=== PATIENT | male | born 1935 | race Caucasian/White ===

== ENCOUNTER → 2017-05-22 | Outpatient (CLI) | payer MEDICARE ==
--- NOTE | 2017-05-22 14:26 | RADIOLOGY REPORT (SQ) ---
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 TECHNIQUE: Multiplanar multisequence imaging performed without and with contrast including sagittal, axial and coronal T2, axial T1, axial gradient fat sat T1, axial, sagittal and coronal fat sat T1 po st contrast. CONTRAST TYPE AND DOSE: 20 mL IV ProHance gadolinium RENAL FUNCTION: Estimated GFR 51 LIMITATIONS: None. FINDINGS: LIVER: Normal size. No masses. Multiple benign-appearing hepatic cysts, the largest is 3. 3 cm in size in the posterior right lobe liver. No dilated ducts. CBD normal. SPLEEN: Normal size. No focal lesions. PANCREAS: A 5.6 cm craniocaudad by 3.7 cm transverse by 4.5 cm in AP solid enhancing mass is present in the pancreatic head, best shown on coronal image 7 and axial image 14. This mass causes pancreati c ductal obstruction, the duct in the pancreatic tail and body is dilated, with pancreatic parenchyma l atrophy. No surrounding retroperitoneal fluid or inflammatory change. Mass abuts the right lateral aspect of the superior mesenteric artery and vein. 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 Just ventral to the pancreatic head mass, a 2.2 x 1.5 cm nodule is present likely a satellite lesion or adjacent enlarged lymph node. This is also shown on coronal image 16. GALLBLADDER: No masses. No stones. No gallbladder wall thickening or pericholecystic fluid. ADRENAL GLANDS: No significant masses or asymmetry. RIGHT KIDNEY AND URETER: No masses. Less than 1 cm right upper and lower pole cortical cysts. No hy dronephrosis. LEFT KIDNEY AND URETER: No masses. Less than 1 cm left upper pole cortical cyst. No hydronephrosis. AORTA AND VESSELS: No aneurysm. No dissection. Renal arteries, SMA, celiac without stenosis. RETROPERITONEUM: No retroperitoneal adenopathy, hemorrhage or masses. BOWEL: No gross obstruction ABDOMINAL WALL AND PERITONEUM: No hernias. No free fluid. BONES: No acute or significant findings. OTHER: No other significant finding. IMPRESSION: 5.6 x 3.7 x 4.5 cm mass in the head of the pancreas with atrophy of the remainder the pa ncreas. Findings are worrisome for primary neoplasm. TECHNICAL DOCUMENTATION: JOB ID: [id number] [employer]- All Rights Reserved
== END ==
LOC: RAD 12:00
PROVIDERS: ATTEND Internal Medicine Medical Oncology
DX: K86.9 Disease of pancreas, unspecified (principal)
CPT/HCPCS: 82565; 74183; A9576

== ENCOUNTER → 2017-05-26 | Outpatient (CLI) | payer MEDICARE ==
--- NOTE | 2017-05-27 09:32 | RADIOLOGY REPORT (SQ) ---
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 RADIONUCLIDE AND DOSE: 11.2 mCi F18 FDG The route of agent administration: Intravenous FASTING BLOOD SUGAR: 92 mg/dl CONTRAST TYPE AND DOSE: No CT contrast given. TECHNIQUE: Blood glucose level was verified. Above dose of FDG was injected intravenously. 2-D seg mented attenuation correction images were obtained from the base of the skull to the midthighs. Nonc ontrast CT images were obtained for attenuation correction and fusion with emission images. CT image s were performed without oral or intravenous contrast and are not sensitive for parenchymal lesions. A series of overlapping emission PET images were obtained. [facility] by the radiologist. Images stored on PACS. LIMITATIONS: None. FINDINGS: HEAD AND NECK: No areas of abnormal metabolic activity in the soft tissues of the head and neck. CHEST: No areas of abnormal metabolic activity in the chest. ABDOMEN AND PELVIS: Pancreatic head mass 6.8 x 6.4 cm measuring 10.0 mean SUV. PROXIMAL LOWER EXTREMITIES: No areas of abnormal metabolic activity in the soft tissues of the lower extremities. BONES: No abnormal metabolic activity in the visualized skeleton. ADDITIONAL CT FINDINGS: Subcentimeter SMA axis non hypermetabolic lymph nodes. Cardiomegaly. 3 cm liver cyst right lobe. Old granulomatous disease in the liver. OTHER: No other significant findings. IMPRESSION: Hypermetabolic pancreatic head mass. No evidence of metastatic disease. TECHNICAL DOCUMENTATION: JOB ID: [id number]- All Rights Reserved
== END ==
LOC: RAD 15:21
PROVIDERS: ATTEND Internal Medicine Medical Oncology
DX: D49.0 Neoplasm of unspecified behavior of digestive system (principal); K86.9 Disease of pancreas, unspecified
CPT/HCPCS: 78815; A9552

== ENCOUNTER → 2017-09-02 | Outpatient (CLI) | payer MEDICARE ==
--- NOTE | 2017-09-04 10:30 | RADIOLOGY REPORT (SQ) ---
EXAM DESCRIPTION: MRI ABDOMEN COMBO COMPLETED DATE/TIME: 09/02/2017 10:25 am REASON FOR STUDY: OTHER MALIGNANT NEUROENDOCRINE TUMORS (C7A.8) C7A.8 OTHER MALIGNANT NEUROENDOCRIN E TUMORS COMPARISON: 05/22/2017 TECHNIQUE: Multiplanar multisequence imaging performed without and with contrast including sagittal, axial and coronal T2, axial T1, axial gradient fat sat T1, axial, sagittal and coronal fat sat T1 po st contrast. CONTRAST TYPE AND DOSE: 20 mL Prohance. RENAL FUNCTION: GFR 51 LIMITATIONS: None. FINDINGS: LIVER: Benign cysts and subcentimeter probable hemangiomas. SPLEEN: Normal size. No focal lesions. PANCREAS: Pancreatic head mass 5.5 x 4.7 by 6.0 cm AP by transverse by craniocaudal diameter, not sig nificantly changed by my measurements. Approximately 2 cm satellite nodule just inferior and anterio r is unchanged. GALLBLADDER: No masses. No stones. No gallbladder wall thickening or pericholecystic fluid. ADRENAL GLANDS: No significant masses or asymmetry. RIGHT KIDNEY AND URETER: No masses. No hydronephrosis. LEFT KIDNEY AND URETER: No masses. No hydronephrosis. AORTA AND VESSELS: No aneurysm. RETROPERITONEUM: No retroperitoneal adenopathy, hemorrhage or masses. BOWEL: No visualized masses. No inflammation. No significant dilatation. ABDOMINAL WALL AND PERITONEUM: See above. No ascites. BONES: No acute findings. OTHER: No other significant finding. IMPRESSION: Stable pancreatic head mass. TECHNICAL DOCUMENTATION: JOB ID: [id number] [employer]- All Rights Reserved Reading location - IP/workstation name: [email or web address]
== END ==
LOC: RAD 09:24
PROVIDERS: ATTEND Internal Medicine Medical Oncology
DX: C7A.8 Other malignant neuroendocrine tumors (principal)
CPT/HCPCS: 74183; 82565

== ENCOUNTER → 2018-02-24 | Outpatient (CLI) | payer MEDICARE ==
--- NOTE | 2018-02-24 15:07 | RADIOLOGY REPORT (SQ) ---
EXAM DESCRIPTION: CT ABDOMEN IV CONTRAST ONLY COMPLETED DATE/TIME: 02/24/2018 10:52 am REASON FOR STUDY: OTHER MALIGNANT NEUROENDOCRINE TUMORS C7A.8 OTHER MALIGNANT NEUROENDOCRINE TUMORS COMPARISON: MRI abdomen dated 09/02/2017 PET-CT dated 05/26/2017 TECHNIQUE: CT scan of the abdomen performed with intravenous and without oral contrast using helical scanning technique with dynamic intravenous contrast injection. Images reviewed with lung, soft tiss ue, and bone windows. Reconstructed coronal and sagittal MPR images reviewed. Delayed images for eval uation of the urinary system also acquired and evaluated. All images stored on PACS. All CT scanners at this facility use dose modulation, iterative reconstruc tion, and/or weight based dosing when appropriate to reduce radiation dose to as low as reasonably ac hievable (ALARA). [facility]: Dose Right [facility]: CareDose [facility]: Dose Right [facility]: Teradose 4D [facility]: [employer] CONTRAST TYPE AND DOSE: contrast/concentration: Isovue 350.00 mg/ml; Total Contrast Delivered: 95.0 ml; Total Saline Delivered: 71.0 ml RENAL FUNCTION: BUN 18, creatinine 1.3 RADIATION DOSE: CT Rad equipment meets quality standard of care and radiation dose reduction technIntrakr ues were employed. CTDIvol: 11.7 - 15.2 mGy. DLP: 1434 mGy-cm. . LIMITATIONS: None. FINDINGS: LOWER CHEST: There are small right lower lobe pulmonary nodules. Please refer to the CT o f the chest for further discussion. LIVER: Hepatic calcifications and cysts are stable in appearance. SPLEEN: Normal size. No focal lesions. PANCREAS: Calcified pancreatic head mass is again noted. This measures 5.4 x 4.6 cm in size. This i s smaller when compared to prior PET-CT. It is grossly stable from recent MRI. GALLBLADDER: No identified stones by CT criteria. No inflammatory changes to suggest cholecystitis. ADRENAL GLANDS: No significant masses or asymmetry. RIGHT KIDNEY AND URETER: No solid masses. No significant calcifications. No hydronephrosis or hyd roureter. LEFT KIDNEY AND URETER: No solid masses. No significant calcifications. No hydronephrosis or hydr oureter. AORTA AND VESSELS: No aneurysm. No dissection. Renal arteries, SMA, celiac without stenosis. RETROPERITONEUM: No retroperitoneal adenopathy, hemorrhage or masses. BOWEL AND PERITONEAL CAVITY: No masses or inflammatory changes. No free fluid or peritoneal masses. APPENDIX: Normal in appearance. ABDOMINAL WALL: No masses. No hernias. BONES: No significant or acute findings. OTHER: No other significant finding. IMPRESSION: Stable pancreatic head lesion. Overall size is 5.4 x 4.6 cm. Calcified lesions in the liver along with hypoattenuating lesions are stable in appearance. TECHNICAL DOCUMENTATION: JOB ID: [id number] Quality ID # [id number]: Final reports with documentation of one or more dose reduction techniques (e.g., Au tomated exposure control, adjustment of the mA and/or kV according to patient size, use of iterative reconstruction technique) 2010 [employer]- All Rights Reserved Reading location - IP/workstation name: [email or web address]
--- NOTE | 2018-02-24 15:13 | RADIOLOGY REPORT (SQ) ---
EXAM DESCRIPTION: CT CHEST WITH COMPLETED DATE/TIME: 02/24/2018 10:52 am REASON FOR STUDY: OTHER MALIGNANT NEUROENDOCRINE TUMORS C7A.8 OTHER MALIGNANT NEUROENDOCRINE TUMORS COMPARISON: PET-CT dated 05/26/2017 TECHNIQUE: CT scan of the chest performed using helical scanning technique with dynamic intravenous contrast injection. Images reviewed with lung, soft tissue and bone windows. Reconstructed coronal and sagittal MPR and MIP images reviewed. All images stored on PACS. All CT scanners at this facility use dose modulation, iterative reconstruction, and/or weight based d osing when appropriate to reduce radiation dose to as low as reasonably achievable (ALARA). [facility]: Dose Right [facility]: CareDose [facility]: Dose Right [facility]: Teradose 4D [facility]: XMS [employer] CONTRAST TYPE AND DOSE: 71 mL Isovue 370- low osmolar. RENAL FUNCTION: BUN 18, creatinine 1.3 RADIATION DOSE: . LIMITATIONS: None. FINDINGS: LUNGS AND PLEURA: There are at least 3 small right lower lobe pulmonary nodules. The larg est measures 5.4 mm in diameter these appear new from prior PET-CT. There is a 7 mm nodule in the an terior aspect of the left lower lobe. There is a smaller ground-glass opacity along the major fissur e measured 8.5 mm. These changes are nonspecific but again appear new and will need follow up. No c onsolidation or effusions. HILAR AND MEDIASTINAL STRUCTURES: No identified masses or abnormal nodes. HEART AND VASCULAR STRUCTURES: No aneurysm or dissection. No central pulmonary emboli. No pericardi al effusion. HARDWARE: None in the chest. UPPER ABDOMEN: Pancreatic mass is again noted. THYROID AND OTHER SOFT TISSUES: No masses. No adenopathy. BONES: No significant finding. OTHER: No other significant finding. IMPRESSION: Small bilateral pulmonary nodules. These are nonspecific but appear new from May 18. Metastatic disease cannot be excluded. The largest nodule on the right measures 5.4 mm. On the left the largest nodule measures 8.5 mm. TECHNICAL DOCUMENTATION: JOB ID: [id number] Quality ID # 436: Final reports with documentation of one or more dose reduction techniques (e.g., Au tomated exposure control, adjustment of the mA and/or kV according to patient size, use of iterative reconstruction technique) 2010 [employer]- All Rights Reserved Reading location - IP/workstation name: [email or web address]
== END ==
LOC: RAD 10:15
PROVIDERS: ATTEND Internal Medicine Medical Oncology
DX: C7A.8 Other malignant neuroendocrine tumors (principal); R91.8 Other nonspecific abnormal finding of lung field
CPT/HCPCS: 71260; 74160

== ENCOUNTER → 2018-06-08 | Outpatient (CLI) | payer MEDICARE ==
--- NOTE | 2018-06-09 09:46 | RADIOLOGY REPORT (SQ) ---
EXAM DESCRIPTION: PET CT SKULL/THIGH COMPLETED DATE/TIME: 06/08/2018 9:05 pm REASON FOR STUDY: PANCREAS CANCER C7A.8 OTHER MALIGNANT NEUROENDOCRINE TUMORS COMPARISON: 05/26/2017 RADIONUCLIDE AND DOSE: 11.2 mCi F18 FDG The route of agent administration: Intravenous FASTING BLOOD SUGAR: 75 mg/dl CONTRAST TYPE AND DOSE: No CT contrast given. TECHNIQUE: Blood glucose level was verified. Above dose of FDG was injected intravenously. 2-D seg mented attenuation correction images were obtained from the base of the skull to the midthighs. Nonc ontrast CT images were obtained for attenuation correction and fusion with emission images. CT image s were performed without oral or intravenous contrast and are not sensitive for parenchymal lesions. A series of overlapping emission PET images were obtained. Images reviewed and manipulated [facility] by the radiologist. Images stored on PACS. LIMITATIONS: Motion. FINDINGS: HEAD AND NECK: No areas of abnormal metabolic activity in the soft tissues of the head and neck. CHEST: No areas of abnormal metabolic activity in the chest. ABDOMEN AND PELVIS: Pancreatic head mass measures 5.2 x 5.8 cm and 3.8 SUV, previously 6.8 x 6.4 cm a nd 10.0 SUV. Increased uptake 3.4 SUV within subcutaneous nodule left buttock measuring 1.2 x 2.4 cm. Unlikely cl inically significant, probably due to previous injection. PROXIMAL LOWER EXTREMITIES: No areas of abnormal metabolic activity in the soft tissues of the lower extremities. BONES: No abnormal metabolic activity in the visualized skeleton. ADDITIONAL CT FINDINGS: Left inguinal hernia containing nondilated bowel. OTHER: Background liver 2.3 SUV. Blood pool 1.9 SUV. IMPRESSION: Decrease in size of pancreatic head mass with decreased metabolic activity compared to p rior. TECHNICAL DOCUMENTATION: JOB ID: [id number] [employer]- All Rights Reserved Reading location - IP/workstation name: [email or web address]
== END ==
LOC: RAD 16:00
PROVIDERS: ATTEND Internal Medicine Medical Oncology
DX: C7A.8 Other malignant neuroendocrine tumors (principal)
CPT/HCPCS: 78815; A9552

== ENCOUNTER 2018-08-21 15:20 | Emergency (ER) | payer MEDICARE ==
--- NOTE | 2018-08-21 16:08 | RADIOLOGY REPORT (SQ) ---
EXAM DESCRIPTION: CT HEAD WITHOUT COMPLETED DATE/TIME: 08/21/2018 3:59 pm REASON FOR STUDY: fall COMPARISON: None. TECHNIQUE: Axial images acquired through the brain without intravenous contrast. Images reviewed wi th bone, brain and subdural windows. Additional sagittal and coronal reconstructions were generated. Images stored on PACS. All CT scanners at this facility use dose modulation, iterative reconstruction, and/or weight based d osing when appropriate to reduce radiation dose to as low as reasonably achievable (ALARA). [facility]: Dose Right [facility]: CareDose [facility]: Dose Right [facility]: Teradose 4D [facility]: [employer] RADIATION DOSE: CT Rad equipment meets quality standard of care and radiation dose reduction techniq ues were employed. CTDIvol: 53.2 mGy. DLP: 1017 mGy-cm. mGy. LIMITATIONS: None. FINDINGS: VENTRICLES: Normal size and contour. CEREBRUM: No masses. No hemorrhage. No midline shift. No evidence for acute infarction. Normal gra y/white matter differentiation. No areas of low density in the white matter. CEREBELLUM: No masses. No hemorrhage. No alteration of density. No evidence for acute infarction. EXTRAAXIAL SPACES: No fluid collections. No masses. ORBITS AND GLOBE: No intra- or extraconal masses. Normal contour of globe without masses. CALVARIUM: No fracture. PARANASAL SINUSES: No fluid or mucosal thickening. SOFT TISSUES: No mass or hematoma. OTHER: No other significant finding. IMPRESSION: NORMAL BRAIN CT WITHOUT CONTRAST. EVIDENCE OF ACUTE STROKE: NO. COMMENT: Quality ID # 436: Final reports with documentation of one or more dose reduction techniques (e.g., Automated exposure control, adjustment of the mA and/or kV according to patient size, use of iterative reconstruction technique) TECHNICAL DOCUMENTATION: JOB ID: [id number] [employer]- All Rights Reserved Reading location - IP/workstation name: [email or web address]
--- NOTE | 2018-08-21 16:10 | RADIOLOGY REPORT (SQ) ---
EXAM DESCRIPTION: CT CERVICAL SPINE WITHOUT COMPLETED DATE/TIME: 08/21/2018 3:59 pm REASON FOR STUDY: Fall COMPARISON: None. TECHNIQUE: Axial images acquired through the cervical spine without intravenous contrast. Images re viewed with lung, soft tissue and bone windows. Reconstructed coronal and sagittal MPR images review ed. Images stored on PACS. All CT scanners at this facility use dose modulation, iterative reconstruction, and/or weight based d osing when appropriate to reduce radiation dose to as low as reasonably achievable (ALARA). [facility]: Dose Right [facility]: CareDose [facility]: Dose Right [facility]: Teradose 4D [facility]: [employer] RADIATION DOSE: CT Rad equipment meets quality standard of care and radiation dose reduction techniq ues were employed. CTDIvol: 23.0 mGy. DLP: 582 mGy-cm. mGy. LIMITATIONS: None. FINDINGS: ALIGNMENT: Anatomic. MINERALIZATION: Normal. VERTEBRAL BODIES: No fractures or dislocation. DISCS: Disc spaces are narrowed at C3-4 and from C5-C7. Marginal osteophytes are present. FACETS, LATERAL MASSES, POSTERIOR ELEMENTS: No fractures. No dislocation. No acute findings. HARDWARE: None in the spine. VISUALIZED RIBS: No fractures. LUNG APICES AND SOFT TISSUES: No significant or acute findings. OTHER: No other significant finding. IMPRESSION: Degenerative disc disease and spondylosis. No acute finding. TECHNICAL DOCUMENTATION: JOB ID: [id number] Quality ID # [id number]: Final reports with documentation of one or more dose reduction techniques (e.g., Au tomated exposure control, adjustment of the mA and/or kV according to patient size, use of iterative reconstruction technique) 2010 [employer]- All Rights Reserved Reading location - IP/workstation name: [email or web address]
--- NOTE | 2018-08-21 16:12 | RADIOLOGY REPORT (SQ) ---
EXAM DESCRIPTION: CT FACIAL AREA WITHOUT COMPLETED DATE/TIME: 08/21/2018 3:59 pm REASON FOR STUDY: Fall COMPARISON: None. TECHNIQUE: Noncontrasted images through the facial bones and orbits windowed for bone and soft tissu e. Additional coronal and sagittal reconstructed images reviewed. All images stored on PACS. All CT scanners at this facility use dose modulation, iterative reconstruction, and/or weight based d osing when appropriate to reduce radiation dose to as low as reasonably achievable (ALARA). [facility]: Dose Right [facility]: CareDose [facility]: Dose Right [facility]: Teradose 4D [facility]: [employer] RADIATION DOSE: CT Rad equipment meets quality standard of care and radiation dose reduction techniq ues were employed. CTDIvol: 30.4 mGy. DLP: 661 mGy-cm. mGy. LIMITATIONS: None. FINDINGS: FACIAL BONES: No fracture or bone lesion. ORBITS: Intact. No fracture. Symmetric intact globes and retroorbital soft tissues. PARANASAL SINUSES: Clear. No significant mucosal thickening, mass or fluid. No nasal polyps. Maxill emelyn sinus outlets are patent. SOFT TISSUES: No mass or edema. INFERIOR BRAIN: Limited view. No acute findings. OTHER: No other significant finding. IMPRESSION: NO ACUTE FINDINGS. TECHNICAL DOCUMENTATION: JOB ID: [id number] Quality ID # [id number]: Final reports with documentation of one or more dose reduction techniques (e.g., Au tomated exposure control, adjustment of the mA and/or kV according to patient size, use of iterative reconstruction technique) 2010 [employer]- All Rights Reserved Reading location - IP/workstation name: [email or web address]
--- NOTE | 2018-08-21 16:13 | RADIOLOGY REPORT (SQ) ---
EXAM DESCRIPTION: SHOULDER LEFT 2 OR MORE VIEWS COMPLETED DATE/TIME: 08/21/2018 4:04 pm REASON FOR STUDY: pain and inability to move COMPARISON: None. NUMBER OF VIEWS: Two views TECHNIQUE: Frontal and lateral images acquired of the left shoulder. LIMITATIONS: None. FINDINGS: MINERALIZATION: Normal. BONES: There is an impacted fracture of the humeral head/ neck. JOINTS: No dislocation. VISUALIZED LUNGS AND RIBS: No pneumothorax. No rib fracture. SOFT TISSUES: No radiopaque foreign body. OTHER: No other significant finding. IMPRESSION: Humeral head/ neck fracture. TECHNICAL DOCUMENTATION: JOB ID: [id number] [employer]- All Rights Reserved Reading location - IP/workstation name: [email or web address]
[2018-08-21 19:11] VITALS: BP 163/95
--- NOTE | 2018-08-21 23:42 | ER Document Report ---
Entered by DIANA SUTTON SCRIBE 08/21/18 [id number] Acting as scribe for:MAYDA RATLIFF DO ED General - General Chief Complaint: Fall Stated Complaint: SHOULDER INJURY Time Seen by Provider: 08/21/18 17:55 Primary Care Provider: ISRRAEL SCOTT FNP [Primary Care Provider] - Follow up as needed NELLY ARMENDARIZ MD [ACTIVE STAFF] - Follow up in 3-5 days Mode of Arrival: Ambulatory Information source: Patient Notes: Patient is an 83 year old male presenting to the emergency department complaining of left shoulder pain secondary a mechanical trip and fall just prior to arrival. Patient states he tripped over his feet and landed on an ottoman hitting his nose and left shoulder. Patient denies any head trauma, being on blood thinner or any focal symptoms. TRAVEL OUTSIDE OF THE [place] IN LAST 30 DAYS: No - Related Data Allergies/Adverse Reactions: No Known Allergies Allergy (Verified 08/21/18 15:29) Past Medical History - General Information source: Patient - Social History Smoking Status: Never Smoker Cigarette use (# per day): No Chew tobacco use (# tins/day): No Smoking Education Provided: No Frequency of alcohol use: Occasional Drug Abuse: None Family History: Reviewed & Not Pertinent - Past Medical History Cardiac Medical History: Reports: Hx Hypercholesterolemia Psychiatric Medical History: Reports: Hx Depression Review of Systems - Review of Systems Constitutional: No symptoms reported EENT: No symptoms reported Cardiovascular: No symptoms reported Respiratory: No symptoms reported Gastrointestinal: No symptoms reported Genitourinary: No symptoms reported Male Genitourinary: No symptoms reported Musculoskeletal: See HPI Skin: No symptoms reported Hematologic/Lymphatic: No symptoms reported Neurological/Psychological: No symptoms reported -: Yes All other systems reviewed and negative Physical Exam - Vital signs Vitals: Temp Pulse Resp BP Pulse Ox 97.4 F 73 16 156/77 H 96 08/21/18 15:26 08/21/18 15:26 08/21/18 15:26 08/21/18 15:26 08/21/18 15:26 - Notes Notes: GENERAL: Alert, interacts well. No acute distress. HEAD: Normocephalic. Superficial abrasion to the bridge of nose, underneath glasses, no gapping laceration, no active bleeding. EYES: Pupils equal, round, and reactive to light. Extraocular movements intact. ENT: Oral mucosa moist, tongue midline, no signs of trauma to the tongue. Nares patent, no nasal septal hematoma, TM's intacts. NECK: Full range of motion. Supple. Trachea midline. LUNGS: Clear to auscultation bilaterally, no wheezes, rales, or rhonchi. No respiratory distress. HEART: Regular rate and rhythm. No murmurs, gallops, or rubs. ABDOMEN: Soft, non-tender. Non-distended. Bowel sounds present in all 4 quadrants. No guarding, rigidity, or rebound. EXTREMITIES: Moves all 4 extremities spontaneously. Tender to palpation to the left proximal humerus. 2+ pitting edema to the RLE, to the level of the calf, patient states this is chronic. Sensations intact of the LUE. Normal muscle strength to the left hand, good capillary refill. Radial and dorsalis pedis pulses 2/4 bilaterally. No cyanosis. NEUROLOGICAL: Alert and oriented x3. Normal speech. PSYCH: Normal affect, normal mood. SKIN: Warm, dry, normal turgor. No rashes or lesions noted. Course - Re-evaluation Re-evalutation: 08/21/18 18:47 CT scan of the face is negative, CT scan of cervical spine is negative, CT scan of the head is negative, x-ray of the left shoulder shows a left humeral head/neck fracture that is impacted but not dislocated. It is slightly subluxed. Discussed over the phone with Dr. Armendariz who states that it is likely subluxed due to either intracapsular hematoma or some deltoid insufficiency. States this is not immediately surgical, agrees with plan to place patient in shoulder immobilizer and discharged to home. - Vital Signs Vital signs: Temp Pulse Resp BP Pulse Ox 98.0 F 64 16 163/95 H 100 08/21/18 19:10 08/21/18 19:10 08/21/18 19:10 08/21/18 19:10 08/21/18 19:10 Procedures - Immobilization left shoulder Pre-Proc Neuro Vasc Exam: Normal Immobilizer type: Shoulder immobilizer Performed by: PCT Post-Proc Neuro Vasc Exam: Normal, Unchanged from pre-exam Alignment checked and good: Yes Discharge - Discharge Clinical Impression: Abrasion Fracture of humeral head, left, closed Qualifiers: Encounter type: initial encounter Qualified Code(s): S42.292A - Other displaced fracture of upper end of left humerus, initial encounter for closed fracture Fall at home Qualifiers: Encounter type: initial encounter Qualified Code(s): W19.XXXA - Unspecified fall, initial encounter; Y92.009 - Unspecified place in unspecified non- institutional (private) residence as the place of occurrence of the external cause Condition: Stable Disposition: HOME, SELF-CARE Additional Instructions: Fracture Proximal Humerus You have a humeral head fracture. This is the top of your shoulder. You should follow-up with Dr. Armendariz, the orthopedic surgeon, as an outpatient to discuss whether or not you may eventually need or want to surgery. The typical shoulder fracture doesn't need a cast. It's best treated by bi nding the arm down with a special sling. Ice packs are used to reduce pain and swelling. After early healing has occurred, [id number] exercises are prescribed for the shoulder. Complete healing may take three to six weeks, depending on the age of the patient and the severity of the fracture. Call the doctor or return at once if the arm becomes numb, or if pain or swelling become severe. You may take acetaminophen up to 1000 mg every 6 hours as needed for pain. I have also prescribed Seymour. Do not combine this with the acetaminophen as it contains acetaminophen and may cause an overdose. Prescriptions: Hydrocodone/Acetaminophen [Seymour 5-325 mg Tablet] 1 tab PO Q6HP PRN #10 tablet PRN Reason: Referrals: ISRRAEL SCOTT FNP [Primary Care Provider] - Follow up as needed NELLY ARMENDARIZ MD [ACTIVE STAFF] - Follow up in 3-5 days I personally performed the services described in the documentation, reviewed and edited the documentation which was dictated to the scribe in my presence, and it accurately records my words and actions.
== END 2018-08-21 19:13 | disposition home or self-care (01) ==
LOC: ER 15:20
DX: S42.292A Other displaced fracture of upper end of left humerus, initial encounter for closed fracture (principal); S00.31XA Abrasion of nose, initial encounter; W01.190A Fall on same level from slipping, tripping and stumbling with subsequent striking against furniture, initial encounter; Y92.009 Unspecified place in unspecified non-institutional (private) residence as the place of occurrence of the external cause; E78.00 Pure hypercholesterolemia, unspecified
CPT/HCPCS: 70450; 70486; 72125; 99284

== ENCOUNTER 2019-05-19 15:08 | Outpatient (CLI) | payer MEDICARE ==
[~2019-05-19 15:08] MED LIST: [UNRECOGNIZED DRUG - OTHER] IM PRN
[2019-05-19 15:23] VITALS: BP 126/75
== END 2019-05-19 15:42 | disposition home or self-care (01) ==
LOC: II 15:08 → 5TH 15:10 → II 15:42
PROVIDERS: ATTEND Internal Medicine
DX: Z51.11 Encounter for antineoplastic chemotherapy (principal); C7A.8 Other malignant neuroendocrine tumors
CPT/HCPCS: 96372; J2353

== ENCOUNTER → 2019-06-15 | Outpatient (CLI) | payer MEDICARE ==
--- NOTE | 2019-06-15 14:01 | RADIOLOGY REPORT (SQ) ---
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 TECHNIQUE: CT scan of the chest and abdomen performed with intravenous and without oral contrast usi ng helical scanning technique with dynamic intravenous contrast injection. Images reviewed with lung, soft tissue, and bone windows. Reconstructed coronal and sagittal MPR images reviewed. Delayed image s for evaluation of the urinary system also acquired and evaluated. All images stored on PACS. All CT scanners at this facility use dose modulation, iterative reconstruc tion, and/or weight based dosing when appropriate to reduce radiation dose to as low as reasonably ac hievable (ALARA). [facility]: Dose Right [facility]: CareDose [facility]: Dose Right [facility]: Teradose 4D [facility]: Noquo CONTRAST TYPE AND DOSE: Contrast/concentration: Isovue 350.00 mg/ml; Total Contrast Delivered: 100.0 ml; Total Saline Delivered: 72.0 ml RENAL FUNCTION: Creatinine 1.1 milligrams/deciliter. RADIATION DOSE: CT Rad equipment meets quality standard of care and radiation dose reduction techniq ues were employed. CTDIvol: 14.0 - 17.5 mGy. DLP: 1553 mGy-cm. LIMITATIONS: None. FINDINGS: CHEST: The trachea and main bronchi are patent. There is no bronchiectasis or segmental m ucus plugging. There are several stable bilateral solid pulmonary nodules ; these include the 2 separate adjacent no dules in the superior segment of the right lower lobe that measure 4.5 and 3 mm (image 67 of series 6 ), the 4 mm subpleural nodule in the basal segments of the right lower lobe (image 91 of series 6), t he 8 mm nodule along the left interlobar fissure (image 57 of series 6), and the 7 mm nodule in the l ingula (image 80 of series 6). There is no new or enlarging pulmonary nodules. There is no consolidation, pleural effusion or pneumothorax. There are no enlarged mediastinal or hilar lymph nodes. The thoracic esophagus is patulous and there is a small hiatal hernia. 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 The heart is normal in size and there is zyth-vq-wbdobhwo atheros clerotic calcification of the coronary arteries. There is no pericardial effusion. The thoracic aor ta is normal in caliber. There is no thoracic aortic dissection or filling defects within the main, right and left pulmonary arteries. LIVER: The morphology of the liver is non cirrhotic. The macrocalcifications in the right hepatic lo be and the hypodense hepatic lesions that range in size from 7 mm up to 3.1 x 2.4 cm are stable in si ze and number from the 06/08/2018 PET. There is no new or enlarging hepatic mass. SPLEEN: There is a heterogeneous mass that arises from the pancreatic head PANCREAS: The heterogeneous mass with internal calcifications centered in the pancreatic head that me asures up to 6 x 5.1 cm is stable in size from the 02/05/2019 PET; the associated atrophy of the panc reatic parenchyma and dilatation of the pancreatic duct in the region of the pancreatic neck have pro gressed - the pancreatic duct measures up to 15 mm in diameter compared to 13 mm on the 02/24/2018 CT . GALLBLADDER: There is no abnormality of the gallbladder that is apparent on CT. The intra and extrah epatic bile ducts are normal in caliber. ADRENAL GLANDS: No mass or asymmetry. RIGHT KIDNEY AND URETER: There are several subcentimeter cortical based hypodense lesions that are to o small to characterize. There is no hydronephrosis nephrolithiasis or solid mass. LEFT KIDNEY AND URETER: The cortical defect in the superior pole of the kidney could represent the se quela of prior infection or infarction. There is no solid mass, hydronephrosis or nephrolithiasis. AORTA AND VESSELS: No aneurysm or dissection of the abdominal aorta. RETROPERITONEUM: No retroperitoneal adenopathy, hemorrhage or mass. The splenic and portal veins are patent. BOWEL AND PERITONEAL CAVITY: Heart is normal in size and there is fnzq-fy-pqzdfdxq atherosclerotic c alcification of the coronary artery; there is no pericardial effusion. The thoracic aorta is normal in caliber. There is no thoracic aortic dissection. There are no filling defects within the main, r ight and left pulmonary arteries. ABDOMINAL WALL: No masses or hernias BONES: No acute findings. OTHER: No other finding. IMPRESSION: 1. The heterogeneous mass with internal calcifications centered in the pancreatic head is unchanged in size from the 06/08/2018 PET. The associated atrophy of the pancreatic parenchyma and dilatation of the pancreatic duct in the region of the pancreatic neck have progressed - for referen ce the pancreatic duct measures up to 15 mm in diameter compared to 13 mm on the 02/24/2018 CT. 2. Stable mesenteric adenopathy. 3. Stable hypodense hepatic lesions. 4. Stable pulmonary nodules. TECHNICAL DOCUMENTATION: JOB ID: [id number] Quality ID # [id number]: Final reports with documentation of one or more dose reduction techniques (e.g., Au tomated exposure control, adjustment of the mA and/or kV according to patient size, use of iterative reconstruction technique) 2010 [facility]- All Rights Reserved Reading location - IP/workstation name: [email or web address]
== END ==
LOC: RAD 08:12
PROVIDERS: ATTEND Nurse Practitioner Family
DX: C7A.8 Other malignant neuroendocrine tumors (principal); R59.0 Localized enlarged lymph nodes; R91.8 Other nonspecific abnormal finding of lung field
CPT/HCPCS: 71260; 74160; 82565

== ENCOUNTER 2019-06-16 14:34 | Outpatient (CLI) | payer MEDICARE ==
[2019-06-16 15:00] VITALS: BP 143/88
== END 2019-06-16 14:59 | disposition home or self-care (01) ==
LOC: II 14:34 → 5TH 14:35 → II 14:59
PROVIDERS: ATTEND Internal Medicine
DX: Z51.11 Encounter for antineoplastic chemotherapy (principal); C7A.8 Other malignant neuroendocrine tumors
CPT/HCPCS: 96401; J2353

== ENCOUNTER 2019-07-14 13:53 | Outpatient (CLI) | payer MEDICARE ==
[2019-07-14 14:10] VITALS: BP 142/97
== END 2019-07-14 14:18 | disposition home or self-care (01) ==
LOC: II 13:53 → 5TH 14:03 → II 14:18
PROVIDERS: ATTEND Internal Medicine
DX: C7A.8 Other malignant neuroendocrine tumors (principal)
CPT/HCPCS: 96372; J2353

== ENCOUNTER 2019-07-26 20:49 | Emergency (ER) | payer MEDICARE ==
[2019-07-26] MEDS ORDERED: DEXTROSE 5%-WATER 500 ML with AMIODARONE HCL 900 MG IV PRN ×2 (21:13)
[2019-07-26] MEDS ORDERED: AMIODARONE HCL INJ 150 MG/3 ML VIAL IV ONE (21:48)
--- NOTE | 2019-07-26 22:07 | EKG REPORT ---
SEVERITY:- ABNORMAL ECG - SINUS RHYTHM MULTIPLE ATRIAL PREMATURE COMPLEXES RIGHT BUNDLE BRANCH BLOCK OLD ANTERIOR AND OLD INFERIOR WALL MS : Confirmed by: Ajit Villareal MD 26-Jul-2019 22:06:55
[2019-07-26 22:13] LABS: ABSOLUTE BASOPHILS # (AUTO) 0.1 10^3/uL (0.0-0.2); ABSOLUTE EOSINOPHILS # (AUTO) 0.2 10^3/uL (0.0-0.6); ABSOLUTE LYMPHOCYTES (AUTO) 1.8 10^3/uL (0.5-4.7); ABSOLUTE MONOCYTES (AUTO) 0.5 10^3/uL (0.1-1.4); ABSOLUTE NEUT (AUTO) 6.8 10^3/uL (1.7-8.2); BASOPHILS % (AUTO) 0.8 % (0-2); EOSINOPHILS % (AUTO) 1.8 % (0-6); HEMATOCRIT 40.3 % (37.9-51.0); HEMOGLOBIN 13.9 g/dL (13.5-17.0); LYMPHOCYTES % (AUTO) 19.1 % (13-45); MEAN CORPUSCULAR HEMOGLOBIN 30.9 pg (27.0-33.4); MEAN CORPUSCULAR HGB CONC 34.6 g/dL (32.0-36.0); MEAN CORPUSCULAR VOLUME 89 fl (80-97); MONOCYTES % (AUTO) 5.1 % (3-13); PLATELET COUNT 198 10^3/uL (150-450); RED BLOOD COUNT 4.51 10^6/uL (4.35-5.55); RED CELL DISTRIBUTION WIDTH 13.7 % (11.5-14.0); SEGMENTED NEUTROPHILS % (AUTO) 73.2 % (42-78); TOTAL CELLS COUNTED % (AUTO) 100 %; WHITE BLOOD COUNT 9.2 10^3/uL (4.0-10.5)
[2019-07-26 22:19] LABS: INTERNATIONAL RATION (INR) 1.13; PROTHROMBIN TIME 14.5 SEC (11.4-15.4)
[2019-07-26 22:26] LABS: ALBUMIN 3.4 g/dL (3.5-5.0); ALKALINE PHOSPHATASE 80 U/L (38-126); ANION GAP 8 (5-19); ASPARTATE AMINO TRANSFERASE 24 U/L (17-59); BILIRUBIN,TOTAL 0.5 mg/dL (0.2-1.3); BLOOD UREA NITROGEN 16 mg/dL (7-20); CALCIUM 8.8 mg/dL (8.4-10.2); CARBON DIOXIDE 27 mmol/L (22-30); CHLORIDE 99 mmol/L (98-107); CREATINE KINASE 110 U/L (55-170); GLUCOSE 224 mg/dL (75-110); POTASSIUM 3.4 mmol/L (3.6-5.0); TOTAL PROTEIN 5.8 g/dL (6.3-8.2)
[2019-07-26 22:36] LABS: CREATINE KINASE MB 1.95 ng/mL (<4.55)
[2019-07-26 22:37] LABS: TROPONIN I 0.091 ng/mL
--- NOTE | 2019-07-26 22:46 | ER Document Report ---
Entered by AMOR HERNADEZ SCRIBE 07/26/[id number] Acting as scribe for:MARLEEN CHERRY IV, MD ED Cardiac - General Chief Complaint: Chest Pain Stated Complaint: CHEST PAIN Primary Care Provider: LINDA PORTILLO FNP-C [NO LOCAL MD] - Follow up as needed Mode of Arrival: Medic Information source: Emergency Med Personnel Notes: This 84 year old male patient brought in by EMS presents to the ED today with complaints of chest pain with radiation to his back for over an hour. EMS reports that the family found the patient sitting in his chair, pale, weak, and diaphoretic. Patient had runs of vtach prior to arrival per EMS. They state that the patient has a history of A fib and took Diltiazem x3 hours prior to their arrival. Denies history of UT, stent placement, or pacemaker. EMS reports that they established IV access and started the patient on 150 mg Amiodarone drip over 10 minutes and administered x2 sprays of SL NTG. They also placed the patient on 2L O2 via NC. They report that the patient reported the pain 2/10 and described it as pressure that seemed to resolve with the Amiodarone rather than the NTG. EMS states that the patient reports that the pain is improved with sitting up and that he denies shortness of breath or dyspnea. They deny any drug allergies, but state that the patient can't take ASA because "his blood his already thin per the stripper cutter machine." EMS notes that the patient was afebrile, GCS 15, AAOx4, and negative for the COVID-19 screen. TRAVEL OUTSIDE OF THE [place] IN LAST 30 DAYS: No - Related Data Allergies/Adverse Reactions: No Known Allergies Allergy (Verified 08/21/18 15:29) Past Medical History - General Information source: Emergency Med Personnel, [facility] Records - Social History Smoking Status: Unknown if Ever Smoked Cigarette use (# per day): No Chew tobacco use (# tins/day): No Smoking Education Provided: No Lives with: Family Family History: Reviewed & Not Pertinent Patient has suicidal ideation: No Patient has homicidal ideation: No - Past Medical History Cardiac Medical History: Reports: Hx Atrial Fibrillation, Hx Hyperch olesterolemia Psychiatric Medical History: Reports: Hx Depression Review of Systems - Review of Systems Constitutional: See HPI, Diaphoresis, Weakness EENT: No symptoms reported Cardiovascular: See HPI, Chest pain. denies: Dyspnea Respiratory: See HPI. denies: Short of breath Gastrointestinal: No symptoms reported Genitourinary: No symptoms reported Male Genitourinary: No symptoms reported Musculoskeletal: No symptoms reported Skin: No symptoms reported Hematologic/Lymphatic: No symptoms reported Neurological/Psychological: No symptoms reported -: Yes All other systems reviewed and negative Physical Exam - Vital signs Vitals: Pulse Ox 99 07/26/19 20:52 - General General appearance: Alert - HEENT Head: Normocephalic, Atraumatic Eyes: Normal Pupils: PERRL - Respiratory Respiratory status: No respiratory distress Chest status: Nontender Breath sounds: Normal Chest palpation: Normal - Cardiovascular Rhythm: Regular Heart sounds: Normal auscultation Murmur: No Friction rub: No Gallop: None auscultated - Abdominal Inspection: Normal Distension: No distension Bowel sounds: Normal Tenderness: Nontender - Abdomen soft Organomegaly: No organomegaly - Back Back: Normal, Nontender - Extremities General upper extremity: Normal inspection General lower extremity: Normal inspection - Neurological Neuro grossly intact: Yes Orientation: AAOx4 - Psychological Associated symptoms: Normal affect, Normal mood - Skin Skin Temperature: Warm Skin Moisture: Dry Skin Color: Normal Course - Re-evaluation Re-evalutation: 07/27/19 00:44 Results of ED MSE discussed with patient. Plans for transfer discussed with patient patient agreed with transfer. Transfer team from [facility] is here and at the bedside. This MD just left the room after going in to see the patient. Patient is in no acute distress. He is awake and alert x3. There is no evidence of beats of V. tach on his monitor. Amiodarone infusion is in place. All questions were answered prior to transport. - Vital Signs Vital signs: Temp Pulse Resp BP Pulse Ox 98.0 F 17 143/89 H 95 07/26/19 21:14 07/27/19 00:31 07/27/19 00:31 07/27/19 00:31 - Laboratory Result Diagrams: 07/26/19 20:58 07/26/19 20:58 Laboratory results interpreted by me: 07/26/19 07/26/19 20:58 20:58 Sodium 134.2 L Potassium 3.4 L Glucose 224 H Magnesium 1.4 L Total Protein 5.8 L Albumin 3.4 L - EKG Interpretation by Me Additional EKG results interpreted by me: 07/26/19 22:34 EKG obtained on 07/26/2019 at 2056 hrs. was interpreted by this MD. Findings: Sinus rhythm, rate 90, right bundle branch block is present, there are ST segment elevations and 2 3 and aVF that appear to be present on the prior EKG from 2016. There do not appear to be any reciprocal depressions. Both today's EKG and the EKG from 2016 were also reviewed by Dr. South with cardiology and he agrees that there appears to be no acute changes between the 2 EKGs and that the morphology is grossly similar. - Consults dr can salomon Time consulted: 21:00 - dr salomon agreed with starting the patient on a amiodarone drip that 1 mg/min. He recommended that the patient be transferred to a outside facility that has electrophysiology capabilities given his runs of V. tach. Reason for consultation: 07/26/19 22:29 chest pain and nonsustained V tach dr ag tsang on behalf of her attending, dr magdi mesa, hospitalist service at [facility] Time consulted: 22:58 - case d/w dr. tsang; she accepted pt on behalf of her attending, dr mesa. dr abbott with [facility] stripper cutter machine aware of patient Reason for consultation: 07/26/19 23:24 chest pain and nonsustained runs of ventricular tachycardia Critical Care Note - Critical Care Note Total time excluding time spent on procedures (mins): 120 - management of ventricular tachycardia Discharge - Discharge Clinical Impression: Non-sustained ventricular tachycardia, Hypokalemia, Hypomagnesemia Chest pain Qualifiers: Chest pain type: unspecified Qualified Code(s): R07.9 - Chest pain, unspecified Condition: Good Disposition: [facility] Referrals: LINDA PORTILLO FNP-C [NO LOCAL MD] - Follow up as needed I personally performed the services described in the documentation, reviewed and edited the documentation which was dictated to the scribe in my presence, and it accurately records my words and actions.
[2019-07-26] MEDS ORDERED: POTASSI CL 20 MEQ/50 ML RIDER 20 MEQ/50 ML RTUPB IV ONE (22:48)
--- NOTE | 2019-07-26 23:11 | RADIOLOGY REPORT (SQ) ---
EXAM DESCRIPTION: XR CHEST 1 VIEW COMPLETED DATE/TME: 07/26/2019 22:07 CLINICAL HISTORY: 84 years, Male, chest pain; intermittent V-tach COMPARISON: None. NUMBER OF VIEWS: TECHNIQUE: LIMITATIONS: None. FINDINGS: No evidence of pulmonary infiltrate or pleural effusion. The heart is normal in size. Pulmonary vascularity appears normal. There are atherosclerotic changes and tortuosity of the thoracic aorta. IMPRESSION: No acute finding. copyright 2010 [employer]- All Rights Reserved
[2019-07-26] MEDS ORDERED: MAGNESIUM SULFATE/D5W 1 GM/100 ML RTUPB IV SCH (23:30)
[2019-07-27] MEDS ORDERED: POTASSIUM CHLORIDE 10 MEQ TABLET.ER PO ONE (00:43)
[2019-07-27 00:58] VITALS: BP 146/84
== END 2019-07-27 00:58 | disposition short-term general hospital (02) ==
LOC: ER 20:49
DX: I47.2 Ventricular tachycardia (principal); R07.89 Other chest pain; E87.6 Hypokalemia; E83.42 Hypomagnesemia; R61 Generalized hyperhidrosis; R53.1 Weakness; I48.91 Unspecified atrial fibrillation; Z79.899 Other long term (current) drug therapy
CPT/HCPCS: 93005; 99291; 99292; 96375; 96365; 96366; 96368; 36415; 82553; 82550; 83735; 85025; 85610; 80053; 84484; 71045; 93010; J3475; J3480; J7060; A9270; J0282

== ENCOUNTER 2019-08-11 13:54 | Outpatient (CLI) | payer MEDICARE ==
[2019-08-11 14:22] VITALS: BP 134/72
== END 2019-08-11 14:30 | disposition home or self-care (01) ==
LOC: II 13:54 → 5TH 14:13 → II 14:30
PROVIDERS: ATTEND Internal Medicine
DX: Z51.11 Encounter for antineoplastic chemotherapy (principal); C7A.8 Other malignant neuroendocrine tumors
CPT/HCPCS: 96372; J2353

== ENCOUNTER 2019-09-08 14:37 | Outpatient (CLI) | payer MEDICARE ==
[2019-09-08 15:07] VITALS: BP 110/77
== END 2019-09-08 15:09 | disposition home or self-care (01) ==
LOC: 5TH 14:37 → II 14:37
PROVIDERS: ATTEND Internal Medicine
DX: C7A.8 Other malignant neuroendocrine tumors (principal)
CPT/HCPCS: 96372; J2353

== ENCOUNTER 2019-10-06 14:41 | Outpatient (CLI) | payer MEDICARE ==
[2019-10-06 15:03] VITALS: BP 124/83
== END 2019-10-06 15:30 | disposition home or self-care (01) ==
LOC: 5TH 14:41 → II 14:41
PROVIDERS: ATTEND Internal Medicine
DX: C7A.8 Other malignant neuroendocrine tumors (principal)
CPT/HCPCS: 96372; J2353

== ENCOUNTER 2019-11-03 14:37 | Outpatient (CLI) | payer MEDICARE ==
[2019-11-03 14:49] VITALS: BP 137/70
== END 2019-11-03 15:00 | disposition home or self-care (01) ==
LOC: II 14:37 → 5TH 14:39 → II 15:00
PROVIDERS: ATTEND Internal Medicine
DX: C7A.8 Other malignant neuroendocrine tumors (principal)
CPT/HCPCS: 96372; J2353

== ENCOUNTER → 2019-11-09 | Outpatient (CLI) | payer MEDICARE ==
--- NOTE | 2019-11-09 11:04 | RADIOLOGY REPORT (SQ) ---
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 TECHNIQUE: CT scan of the chest performed using helical scanning technique with dynamic intravenous contrast injection. Images reviewed with lung, soft tissue and bone windows. Reconstructed coronal a nd sagittal MPR images reviewed. All images stored on PACS. All CT scanners at this facility use dose modulation, iterative reconstruction, and/or weight based d osing when appropriate to reduce radiation dose to as low as reasonably achievable (ALARA). [facility]: Dose Right [facility]: CareDose [facility]: Dose Right [facility]: Teradose 4D [facility]: [employer] RADIATION DOSE: CT Rad equipment meets quality standard of care and radiation dose reduction techniq ues were employed. CTDIvol: 14.1 - 15.8 mGy. DLP: 1619 mGy-cm. . LIMITATIONS: None. FINDINGS: AXILLAE: No adenopathy. CHEST WALL: No masses. No subcutaneous air. LUNGS: Stable bilateral pulmonary nodules. On the left the largest is measured approximately 7 mm. This is best demonstrated on series 6, image 54. On the right there are 4 stable pulmonary nodules. These measure between 2.9 and 4.6 mm in diameter. These are best demonstrated on series 6 image 69 and 70. Series 6, image 67. And series 6 image 92. PLEURA: No effusions. No calcifications. THYROID: No masses or significant asymmetry. HILAR AND MEDIASTINAL STRUCTURES: No identified masses or abnormal nodes. AORTA AND GREAT VESSELS: No aneurysm. No dissection. PULMONARY ARTERIES: No identified pulmonary emboli. Study not optimized for the pulmonary arteries. HEART: No pericardial effusion. HARDWARE AND LIFELINES: None. BONES: No significant finding. OTHER: No other significant finding. IMPRESSION: 1. Stable bilateral pulmonary nodules. COMPARISON: None. RADIATION DOSE: CT Rad equipment meets quality standard of care and radiation dose reduction techniq ues were employed. CTDIvol: 14.1 - 15.8 mGy. DLP: 1619 mGy-cm. mGy. TECHNIQUE: CT scan of the abdomen performed with intravenous and oral contrast using helical scannin g technique with dynamic intravenous contrast injection. Images reviewed with lung, soft tissue and bone windows. Reconstructed coronal and sagittal MPR images reviewed. Delayed images for evaluation of the urinary system also acquired and evaluated. All images stored on PACS. All CT scanners at this facility use dose modulation, iterative reconstruction, and/or weight based d osing when appropriate to reduce radiation dose to as low as reasonably achievable (ALARA). [facility]: Dose Right [facility]: [employer] [facility]: Dose Right [facility]: Teradose 4D [facility]: [employer] FINDINGS: LIVER: Stable hypodensities throughout the liver most consistent with cysts. Stable calci fications in the periphery of the right lobe. No new lesions. SPLEEN: Normal size. No focal lesions. PANCREAS: The heterogeneous pancreatic mass with scattered calcifications is not significantly change d in size. Largest diameter is approximately 5.8 x 4.8 cm. Pancreatic duct measures up to 14.1 mm. GALLBLADDER: No identified stones by CT criteria. No inflammatory changes to suggest cholecystitis. ADRENAL GLANDS: No significant masses or asymmetry. RIGHT KIDNEY AND URETER: No solid masses. There are small right renal cysts. No significant calcif ications. No hydronephrosis or hydroureter. LEFT KIDNEY AND URETER: No solid masses. There is a small left renal cyst. No significant calcific ations. No hydronephrosis or hydroureter. AORTA AND VESSELS: Stable in appearance. There is narrowing of the celiac axis at its origin. This is approximately 50%. The SMA is widely patent. This calcified plaque the origin of both renal lily collins. RETROPERITONEUM: No retroperitoneal adenopathy, hemorrhage or masses. LARGE AND SMALL BOWEL: No dilatation. No masses. No wall thickening. APPENDIX: Normal. ABDOMINAL WALL: No hernia or masses. PERITONEAL CAVITY: An occasional peritoneal lymph nodes identified stable from prior exam. The large st measures 15 mm in diameter and is best demonstrated on series 3, image 31. BONES: Degenerative changes in the lumbar spine. OTHER: No other significant finding. IMPRESSION: The pancreatic mass is grossly stable in size and configuration. No change in duct size . Multiple stable hypoattenuating lesions throughout the liver. There stable calcifications as well. No new lesions. Stable small mesenteric lymph nodes the largest measures 15 mm. TECHNICAL DOCUMENTATION: JOB ID: [id number] Quality ID # [id number]: Final reports with documentation of one or more dose reduction techniques (e.g., Au tomated exposure control, adjustment of the mA and/or kV according to patient size, use of iterative reconstruction technique) 2010 [employer]- All Rights Reserved Reading location - IP/workstation name: [email or web address]
== END ==
LOC: RAD 09:01
PROVIDERS: ATTEND Internal Medicine Hematology & Oncology
DX: C7A.8 Other malignant neuroendocrine tumors (principal); R91.8 Other nonspecific abnormal finding of lung field; K76.9 Liver disease, unspecified
CPT/HCPCS: 71260; 74160; 82565

== ENCOUNTER 2019-12-04 14:14 | Outpatient (CLI) | payer MEDICARE ==
[2019-12-04 14:27] VITALS: BP 126/76
== END 2019-12-04 14:48 | disposition home or self-care (01) ==
LOC: II 14:14 → 5TH 14:22 → II 14:48
PROVIDERS: ATTEND Internal Medicine
DX: C7A.8 Other malignant neuroendocrine tumors (principal)
CPT/HCPCS: 96372; J2353

== ENCOUNTER 2020-01-05 14:30 | Outpatient (CLI) | payer MEDICARE ==
[2020-01-05 14:26] VITALS: BP 133/75
== END 2020-01-05 14:34 | disposition home or self-care (01) ==
LOC: II 14:30 → 5TH 14:30 → II 14:34
PROVIDERS: ATTEND Internal Medicine
DX: Z51.11 Encounter for antineoplastic chemotherapy (principal); C7A.8 Other malignant neuroendocrine tumors
CPT/HCPCS: 96401; J2353

== ENCOUNTER → 2020-04-12 | Outpatient (CLI) | payer MEDICARE | LOC: SP 08:11 | PROVIDERS: ATTEND Physician Assistant | DX: I50.31 Acute diastolic (congestive) heart failure (principal) | CPT/HCPCS: 93306 ==

== ENCOUNTER 2020-05-10 14:38 | Outpatient (CLI) | payer MEDICARE ==
[2020-05-10 14:47] VITALS: BP 167/89
== END 2020-05-10 14:55 | disposition home or self-care (01) ==
LOC: II 14:38 → 5TH 14:41 → II 14:55
PROVIDERS: ATTEND Internal Medicine Hematology & Oncology
DX: Z51.11 Encounter for antineoplastic chemotherapy (principal); C7A.8 Other malignant neuroendocrine tumors
CPT/HCPCS: 96372; J2353